=== PATIENT | female | born 1990 | race Caucasian/White ===

== ENCOUNTER 2019-11-29 13:36 | Emergency (ER) | payer OTHER ==
[~2019-11-29] VITALS: Ht 162.6 cm; Wt 86.2 kg
[2019-11-29 13:42] VITALS: BP 119/78
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
--- NOTE | 2019-11-29 14:39 | NUR ---
ED Nurse Note: pt. stated she does not want to wait for the urine preg result. Pt. signed a consent form regarding that she is ok to not wait for preg urine result. Per pt. her last period was on January 2015 Addendum: 11/29/19 at 1442 by ANAO ED Nurse Note: [employer] support technician witnessed the pt. signing the consent form to do te CT without urine test result
--- NOTE | 2019-11-29 14:41 | NUR ---
ED Nurse Note: pt. went down to CT
--- NOTE | 2019-11-29 14:55 | NUR ---
ED Nurse Note: pt. came back from ct
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
[2019-11-29] MEDS ORDERED: ROBAXIN-500MG ORAL (15:46)
[2019-11-29] MEDS ORDERED: IBU800 MG PO (15:46)
[2019-11-29] MEDS ORDERED: LIDODERM700 M1 TOPIC (15:46)
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
[2019-11-29 15:58] VITALS: BP 122/70
--- NOTE | 2019-11-29 15:58 | NUR ---
ER DISCHARGE NOTE: Patient is cleared to be discharged per PA, pt is aox4, on room air, with stable vital signs. pt was given dc and prescription instructions, pt was able to verbalize understanding, pt id band removed. pt is able to ambulate with steady gait. pt took all belongings.
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
== END 2019-11-29 15:58 | disposition home or self-care (01) ==
LOC: EMR 14:22
DX: S13.4XXA Sprain of ligaments of cervical spine, initial encounter (principal); S33.5XXA Sprain of ligaments of lumbar spine, initial encounter; S43.401A Unspecified sprain of right shoulder joint, initial encounter; V43.52XA Car driver injured in collision with other type car in traffic accident, initial encounter; Y92.410 Unspecified street and highway as the place of occurrence of the external cause
CPT/HCPCS: 72125; 72128; 72131; 81025; 99284